=== PATIENT | female | born 1985 | race Caucasian/White ===

== ENCOUNTER 2024-05-08 21:38 | Emergency (ER) | payer SELFPAY ==
[2024-05-08 21:42] VITALS: BP 93/64
[2024-05-08 21:46] VITALS: BMI 19.3
[2024-05-08 22:06] VITALS: BP 102/72
[2024-05-08 22:14] LABS: % Basophils 0.7 % (0-2); % Eosinophils 3.6 % (0-6); % Immature Granulocytes 0.3 % (0-0.5); % Lymphocytes 19.7 % (20.5-51.1); % Monocytes 6.3 % (1.7-9.3); % Neutrophils 69.4 % (42.2-75.2); Absolute Basophils 0.1 10^3/uL (0-0.2); Absolute Eosinophils 0.4 10^3/uL (0-0.7); Absolute Lymphocytes 1.9 10^3/uL (1.2-3.4); Absolute Monocytes 0.6 10^3/uL (0.1-0.6); Absolute Neutrophils 6.8 10^3/uL (1.4-6.5); Hematocrit 35.7 % (37.0-47.0); Hemoglobin 12.9 g/dL (12.0-16.0); Mean Corp Hgb Conc. 36.1 g/dL (33.0-37.0); Nucleated Red Blood Cells % 0 %; Platelet Count 407 10^3/uL (130-400); Red Cell Dist. Width 12.5 % (11.5-14.5); White Blood Cell Count 9.8 10^3/uL (4.8-10.8)
[2024-05-08 22:36] LABS: HCG, Serum Qualitative Screen Negative
[2024-05-08 22:39] LABS: ALT (SGPT) 16 U/L (0-35); AST (SGOT) 23 U/L (14-36); Albumin 4.5 g/dl (3.5-5.0); Alkaline Phosphatase 55 U/L (38-126); Blood Urea Nitrogen 10 mg/dl (7-17); Calcium 9.6 mg/dl (8.4-10.2); Carbon Dioxide 29 mmol/L (22-30); Chloride 105 mmol/L (98-107); Estimated Creatinine Clearance 74 ml/min; Glucose 57 mg/dl (70-99); Potassium 3.8 mmol/L (3.5-5.1); Sodium 140 mmol/L (135-145); Total Bilirubin 0.3 mg/dl (0.2-1.3); Total Protein 6.8 g/dl (6.3-8.2); eGFR > 60.00
--- NOTE | 2024-05-08 22:57 | ED.GENMED ---
History of Present Illness
<Vikas Hauser MD, Resident - Last Filed: 05/09/24 02:10>
General
Chief Complaint: Rectal Bleeding
Time Seen by Provider: 05/08/24 22:30
History of Present Illness
History of Present Illness:
38-year-old female presented to the ED complaining of rectal bleeding. She reports having bloody stools for the past 5 months, describing the stools as dark and occasionally experiencing straining with bowel movement. Today, she noted that bright
red blood mixed with dark blood in her stools. Additionally, she felt dizzy. The patient also reports left upper quadrant pain and some epigastric pain which has been ongoing for the past week. She also mentions 'a polyp which protrudes after a
BM'. She is unable to urinate despite feeling an urgency but denies any pain or or burning with urination. She she has history of UTI twice in the past year. She also has experiences lower abdominal pain for the past year. The patient has a
family history of blood clots and a possible history of anxiety, insomnia and depression. She is originally from [facility].
Past History
<Vikas Hauser MD, Resident - Last Filed: 05/09/24 02:10>
Past History
ED Past Medical History: None
ED Past Surgical History: None
Social History
Tobacco: Non-smoker
Alcohol: None
Drug: None
Living: with family
Employment: Employed
Family History
Family History: Other (Noncontributory)
Review of Systems
<Vikas Hauser MD, Resident - Last Filed: 05/09/24 02:10>
Review of Systems
ABD/GI: Reports abdominal pain and bloody stools (mixed blood (dark plus bright))
Phy Exam
<Vikas Hauser MD, Resident - Last Filed: 05/09/24 02:10>
General Physical Exam
General Presentation: well appearing and no apparent distress
Cardiovascular Exam
Cardiovascular Exam: regular rate/rhythm and no murmur
Pulmonary Exam
Pulmonary Exam: lungs clear
Gastrointestinal Exam
Gastrointestinal Exam: normal bowel sounds, non tender, soft and non distended
Course
<Vikas Hauser MD, Resident - Last Filed: 05/09/24 02:10>
Orders/Labs/Results
Orders:
Orders
05/08/24 21:48
Test Result ONCE
05/08/24 22:08
C-Reactive Protein Urgent
Comment: ADDED
Complete Blood Count/With Diff Urgent
Comprehensive Metabolic Panel Urgent
Erythrocyte Sed Rate Urgent
Comment: ADDED
HCG, Serum Qualitative Screen Urgent
05/08/24 23:06
Iohexol [Omnipaque] See Protocol PO NOW STA
05/08/24 23:28
Add On- LAB Urgent
Tests Added?: esr/crp
05/09/24 00:01
CT Abd/pel W Iv And Oral Contr Urgent
Reason For Exam: rectal bleeding, LUQ pain
Abnormal Lab Results
05/08/24
22:08
Hct 35.7 L %
(37.0-47.0)
Plt Count 407 H 10^3/uL
(130-400)
Absolute Neuts (auto) 6.8 H 10^3/uL
(1.4-6.5)
Lymphocytes % 19.7 L %
(20.5-51.1)
Glucose 57 L mg/dl
(70-99)
05/08/24 22:08
05/08/24 22:08
Vital Signs
Initial and Last Documented VS:
Initial Vital Signs
Temp Pulse Resp BP Pulse Ox
98.1 F 87 18 93/64 98
05/08/24 21:42 05/08/24 21:42 05/08/24 21:42 05/08/24 21:42 05/08/24 21:42
Last Documented Vital Signs
Temp Pulse Resp BP Pulse Ox
98.6 F 74 16 118/68 99
05/09/24 00:00 05/09/24 00:00 05/09/24 00:00 05/09/24 00:00 05/09/24 00:00
<Pascual Leahy, DO - Last Filed: 05/09/24 00:19>
Orders/Labs/Results
Orders:
Orders
05/08/24 21:48
Test Result ONCE
05/08/24 22:08
C-Reactive Protein Urgent
Comment: ADDED
Complete Blood Count/With Diff Urgent
Comprehensive Metabolic Panel Urgent
Erythrocyte Sed Rate Urgent
Comment: ADDED
HCG, Serum Qualitative Screen Urgent
05/08/24 23:06
Iohexol [Omnipaque] See Protocol PO NOW STA
05/08/24 23:28
Add On- LAB Urgent
Tests Added?: esr/crp
05/09/24 00:01
CT Abd/pel W Iv And Oral Contr Urgent
Reason For Exam: rectal bleeding, LUQ pain
Abnormal Lab Results
05/08/24
22:08
Hct 35.7 L %
(37.0-47.0)
Plt Count 407 H 10^3/uL
(130-400)
Absolute Neuts (auto) 6.8 H 10^3/uL
(1.4-6.5)
Lymphocytes % 19.7 L %
(20.5-51.1)
Glucose 57 L mg/dl
(70-99)
05/08/24 22:08
05/08/24 22:08
Vital Signs
Initial and Last Documented VS:
Initial Vital Signs
Temp Pulse Resp BP Pulse Ox
98.1 F 87 18 93/64 98
05/08/24 21:42 05/08/24 21:42 05/08/24 21:42 05/08/24 21:42 05/08/24 21:42
Last Documented Vital Signs
Temp Pulse Resp BP Pulse Ox
98.6 F 74 16 118/68 99
05/09/24 00:00 05/09/24 00:00 05/09/24 00:00 05/09/24 00:00 05/09/24 00:00
<Vikas Hauser MD, Resident - Last Filed: 05/09/24 02:10>
*Critical Care Note
Total Time (30-74mins, 75-104mins- exclusive of procedures): Not Applicable
<Vikas Hauser MD, Resident - Last Filed: 05/09/24 02:10>
Update Note
Update Note:
29-year-old female presented to the ED with rectal bleeding described bright and dark red stool.
Differential diagnosis
#1 anal fissure #2 hemorrhoids #3 AVM #4 diverticulosis #5 GI bleed very less likely
Patient is hemodynamically stable. Will order Hemoccult is negative. Will order CT scan of the abdomen with IV and p.o. contrast.
CT scan results are unremarkable. Advised patient to follow-up with GI, referral given to Dr. Gab Sierra.
Advised patient return to ED with chest pain, shortness of breath, palpitations, any worsening symptoms.
ED Attending Note
<Vikas Hauser MD, Resident - Last Filed: 05/09/24 02:10>
-
Portions of this chart may have been created with voice recognition software.� Occasional wrong word or��sound alike� substitutions may have occurred due to the inherent limitations of voice recognition software.
<Pascual Leahy DO - Last Filed: 05/09/24 00:19>
ED Attending Note
Patient seen and examined by attending physician: Yes
I performed a history and physical exam of patient and discussed management with resident, I reviewed resident's note and agree with documented findings and plan of care.: Yes
ED Attending Note:
Seen with resident agree with assessment and plan
38-year-old female subacute rectal bleeding, labs are noted, will add inflammatory marker CT scan apparently patient describes it could be a prolapsed hemorrhoid, will have her follow-up with GI and colorectal surgeon if CAT scans are negative
Discharge Plan
Departure
Patient Disposition: Home (Routine Discharge)
Date of Disposition: 05/09/24
Time of Disposition: 02:05
Patient with high blood pressure during this ER visit?: No
Discharge Problem:
Painless rectal bleeding
Instructions: Bloody stools in adults
Prescriptions:
No Action
metaxalone [Skelaxin] 800 MG tablet
800 mg PO TIDPRN PRN (Reason: pain) Qty: 12 0RF
Referrals:
Gab Sierra MD [Active] - Follow up in 5-7 days
Krish Saini DO [Family Provider] - Follow up in 1 week
Interventions
Interventions:
ED- Fall Risk Assessment Last Done: 05/08/24 22:40
NT-Gjfgmg-Daazelagbq Assessment Last Done: 05/08/24 22:40
ED- Cardiac Assessment Last Done: 05/08/24 22:40
ED- Pulmonary Assessment Last Done: 05/08/24 22:40
Discharge Date and Time
Print Language: SLOVAK
[2024-05-08 23:00] VITALS: BP 104/59
[2024-05-08] MEDS: OMNIPAQUE 50 ML PO (23:15)
[2024-05-09] VITALS: BP 118/68
[2024-05-09 00:27] LABS: Erythrocyte Sed Rate 4 mm/hour (0-20)
[2024-05-09 00:50] LABS: C-Reactive Protein < 5.00 mg/L (0.0-10.00)
== END 2024-05-09 02:25 | disposition home or self-care (01) ==
LOC: EMR 21:38
PROVIDERS: Emergency Medicine; EMERGENCY PHYSICIAN Emergency Medicine; FAMILY PHYSICIAN Family Medicine Sports Medicine
DX: K62.5 Hemorrhage of anus and rectum (principal); Z87.440 Personal history of urinary (tract) infections
CPT/HCPCS: 99284; 74177; 80053; 84703; 85025; 85652; 86140; Q9967

== ENCOUNTER 2024-08-29 00:45 | Emergency (ER) | payer SELFPAY ==
[2024-08-29 00:50] VITALS: BP 110/70
--- NOTE | 2024-08-29 01:09 | ED.GENMED ---
History of Present Illness
<Niru Herrera PA-C - Last Filed: 08/29/24 01:50>
General
Chief Complaint: Problems
Source: patient
Time Seen by Provider: 08/29/24 00:55
History of Present Illness
History of Present Illness:
38yoF with a history of depression presenting for evaluation of multiple complaints. Patient is going through a divorce and is under a lot of stress. She has lost about 50 pounds over the past 5 months but has recently gained back about 5 pounds.
She started to have generalized abdominal pain and back pain about 3 days ago. The pain is intermittent and recurred about 4 hours ago. She reports feeling lightheaded due to the pain. She is also having some nausea and diarrhea. She went to [facility] yesterday for a checkup. She had a urine test which was reportedly positive. She states this is impossible because she has not had sex in 5 months. She does not remember when her last menstrual period was and she states her
cycles are irregular. She denies any vaginal bleeding. Of note, patient was seen in the ED on 05/08/24 for rectal bleeding and test was negative at that time.
Past History
<Niru Herrera PA-C - Last Filed: 08/29/24 01:50>
Past History
ED Past Medical History: None
ED Past Surgical History: None
Social History
Tobacco: Non-smoker
Alcohol: None
Drug: None
Living: with family
Employment: Employed
Family History
Family History: Other (Noncontributory)
Phy Exam
<Niru Herrera PA-C - Last Filed: 08/29/24 01:50>
General Physical Exam
General Presentation: no apparent distress
General Skin: warm and dry
General Habitus: cachetic
General Mental: alert
ENT Exam
ENT Exam: normocephalic
Cardiovascular Exam
Cardiovascular Exam: regular rate/rhythm and no murmur
Pulmonary Exam
Pulmonary Exam: lungs clear, no respiratory distress, no rales, no crackles, no rhonchi and no wheezing
Gastrointestinal Exam
Gastrointestinal Exam: soft, non distended and tender (Mild generalized tenderness throughout abdomen. Abdomen soft, non-distended. No rebound or guarding. )
Neurological Exam
Neurological Exam: alert
Manish Coma Scale
Eye Opening: Spontaneous
Verbal Response: Oriented
Motor Response: Obeys Commands
GCS Total Score: 15
Skin Exam
Skin Exam: normal color and warm/dry
Psychiatric Exam
Psychiatric Exam: normal mood/affect
<Pascual Leahy DO - Last Filed: 08/29/24 04:32>
[place] Coma Scale
GCS Total Score: 15
Course
<Niru Herrera PA-C - Last Filed: 08/29/24 01:50>
Orders/Labs/Results
Orders:
Orders
08/29/24 01:07
US W Transvaginal Urgent
Reason For Exam: Positive test, abd pain
08/29/24 01:08
Test Result ONCE
08/29/24 01:13
Beta Hcg Urine Qualitative Screen [HCG, Urine Qualitative Screen] Urgent
Date Specimen was Collected: 08/29/24
Time Specimen was Collected: 01:10
Urinalysis Reflex To Culture Urgent
Date Specimen was Collected: 08/29/24
Time Specimen was Collected: 01:10
08/29/24 01:25
Type+Screen Urgent
Beta HCG Quantitative Urgent
Is this a screen?: No
Complete Blood Count/With Diff Urgent
Comprehensive Metabolic Panel Urgent
Lipase Urgent
Magnesium Urgent
TSH Reflex To Free T4 Urgent
08/29/24 01:50
ABO2 Urgent
BBK Wristband Number:
Associate notified that ABO2 has been ordered: [id number]
Date: 08/29/24
Time: 01:42
Director [facility] ID: [id number]
Abnormal Lab Results
08/29/24
01:25
RBC 4.18 L 10^6/uL
(4.20-5.40)
Hct 33.8 L %
(37.0-47.0)
MCV 80.9 L fL
(81.0-99.0)
Creatinine 0.5 L mg/dL
(0.6-1.0)
Total Protein 6.0 L g/dl
(6.3-8.2)
08/29/24 01:25
08/29/24 01:25
Vital Signs
Initial and Last Documented VS:
Initial Vital Signs
Temp Pulse Resp BP Pulse Ox
97.8 F 77 22 110/70 100
08/29/24 00:50 08/29/24 00:50 08/29/24 00:50 08/29/24 00:50 08/29/24 00:50
Last Documented Vital Signs
Temp Pulse Resp BP Pulse Ox
97.8 F 75 14 109/73 98
08/29/24 00:50 08/29/24 02:35 08/29/24 02:35 08/29/24 02:35 08/29/24 02:35
Leilalt;Pascual Leahy, DO - Last Filed: 08/29/24 04:32>
Orders/Labs/Results
Orders:
Orders
08/29/24 01:07
US W Transvaginal Urgent
Reason For Exam: Positive test, abd pain
08/29/24 01:08
Test Result ONCE
08/29/24 01:13
Beta Hcg Urine Qualitative Screen [HCG, Urine Qualitative Screen] Urgent
Date Specimen was Collected: 08/29/24
Time Specimen was Collected: 01:10
Urinalysis Reflex To Culture Urgent
Date Specimen was Collected: 08/29/24
Time Specimen was Collected: 01:10
08/29/24 01:25
Type+Screen Urgent
Beta HCG Quantitative Urgent
Is this a screen?: No
Complete Blood Count/With Diff Urgent
Comprehensive Metabolic Panel Urgent
Lipase Urgent
Magnesium Urgent
TSH Reflex To Free T4 Urgent
08/29/24 01:50
ABO2 Urgent
BBK Wristband Number:
Associate notified that ABO2 has been ordered: [id number]
Date: 08/29/24
Time: 01:42
Director [facility] ID: [id number]
Abnormal Lab Results
08/29/24
01:25
RBC 4.18 L 10^6/uL
(4.20-5.40)
Hct 33.8 L %
(37.0-47.0)
MCV 80.9 L fL
(81.0-99.0)
Creatinine 0.5 L mg/dL
(0.6-1.0)
Total Protein 6.0 L g/dl
(6.3-8.2)
08/29/24 01:25
08/29/24 01:25
Vital Signs
Initial and Last Documented VS:
Initial Vital Signs
Temp Pulse Resp BP Pulse Ox
97.8 F 77 22 110/70 100
08/29/24 00:50 08/29/24 00:50 08/29/24 00:50 08/29/24 00:50 08/29/24 00:50
Last Documented Vital Signs
Temp Pulse Resp BP Pulse Ox
97.8 F 75 14 109/73 98
08/29/24 00:50 08/29/24 02:35 08/29/24 02:35 08/29/24 02:35 08/29/24 02:35
Information
Weeks gestation: Weeks: (7)
Location: Location: (iup)
<Niru Herrera PA-C - Last Filed: 08/29/24 01:50>
MDM/Problems Addressed
Differential Diagnosis Includes:
38yoF here after a positive test at [facility] yesterday. C/o intermittent abd and back pain over the past few days. No vaginal bleeding. She is afebrile and hemodynamically stable. She is well appearing in no acute distress. No
signs of peritonitis on abdominal exam. Differential diagnosis includes but is not limited to: abdominal pain in , ectopic , UTI, pyelonephritis
Initial ED plan: Check abdominal labs, quantitative HCG, TSH, UA, and pelvic ultrasound.
<Pascual Leahy DO - Last Filed: 08/29/24 04:32>
*Radiology
Radiology exam reviewed: other (vrad)
*Pulse Oximetry
Patient hypoxic: no
*Critical Care Note
Total Time (30-74mins, 75-104mins- exclusive of procedures): Not Applicable
ED Attending Note
<Niru Herrera PA-C - Last Filed: 08/29/24 01:50>
-
Portions of this chart may have been created with voice recognition software.� Occasional wrong word or��sound alike� substitutions may have occurred due to the inherent limitations of voice recognition software.
<Pascual Leahy DO - Last Filed: 08/29/24 04:32>
ED Attending Note
Patient seen and examined by attending physician: Yes
I performed the substantive portion of visit, reviewed & personally made and approve the management plan that is documented in note by myself or ERLINDA.: Yes
ED Attending Note:
Seen with PA agree with assessment and plan nontoxic 38-year-old female positive hCG at [facility] here she is nontoxic soft nontender abdomen, ultrasound report noted beta noted patient stable for outpatient follow-up
Discharge Plan
Departure
Prescriptions:
No Action
Anxiety Medication
1 tab PO PRN PRN (Reason: anxiety)
Patient Comments:
pt does not know what medication was prescribed
Claritin-D 24 Hour 10-240 mg Tablet Extended Release 24 Hr
1 tab PO DAILY
desvenlafaxine 100 mg Tablet Extended Release 24 Hr
100 mg PO DAILY
Referrals:
Krish Saini DO [Family Provider] -
Interventions
Interventions:
*Risk Screen - Suicide Last Done: 08/29/24 00:50
*General Assessment Last Done: 08/29/24 01:17
*Neglect/Abuse Screening Last Done: 08/29/24 00:50
ED- Fall Risk Assessment Last Done: 08/29/24 01:36
*ED COVID-19 Vaccine History Last Done: 08/29/24 01:17
ED-Female Genitourinary Assessment Last Done: 08/29/24 01:36
Discharge Date and Time
Print Language: DANISH
[2024-08-29 01:14] VITALS: BMI 17.8
[2024-08-29 01:27] LABS: HCG, Urine Qualitative Screen Positive; Urine Albumin Negative (Neg - Trace); Urine Bilirubin Negative (Negative); Urine Character Clear (Clear); Urine Color Yellow; Urine Glucose Negative (Negative); Urine Ketone Negative (Negative); Urine Leukocyte Negative (Negative); Urine Nitrite Negative (Negative); Urine Occult Blood Negative (Negative); Urine Urobilinogen Negative (Neg - 1+)
[2024-08-29 01:37] LABS: % Basophils 0.4 % (0-2); % Eosinophils 1.5 % (0-6); % Immature Granulocytes 0.2 % (0-0.5); % Lymphocytes 21.6 % (20.5-51.1); % Monocytes 5.9 % (1.7-9.3); % Neutrophils 70.4 % (42.2-75.2); Absolute Eosinophils 0.1 10^3/uL (0-0.7); Absolute Monocytes 0.6 10^3/uL (0.1-0.6); Absolute Neutrophils 6.5 10^3/uL (1.4-6.5); Hematocrit 33.8 % (37.0-47.0); Hemoglobin 12.4 g/dL (12.0-16.0); Mean Corp Hgb Conc. 36.7 g/dL (33.0-37.0); Mean Corpuscular Hgb 29.7 pg (27.0-31.0); Mean Corpuscular Volume 80.9 fL (81.0-99.0); Mean Platelet Volume 8.7 fL (7.4-10.4); Nucleated Red Blood Cells % 0 %; Platelet Count 352 10^3/uL (130-400); Red Blood Cell Count 4.18 10^6/uL (4.20-5.40); Red Cell Dist. Width 12.6 % (11.5-14.5); White Blood Cell Count 9.3 10^3/uL (4.8-10.8)
--- NOTE | 2024-08-29 01:37 | EDRN ---
Pt says she has been going through a divorce the past 5 months and is under a lot of stress, lost 50 pounds. Pt went to [facility] yesterday and had a positive test which pt says is impossible because she has not had sex in 5
months. Pt does not remember when her last period was and thinks it may have been 2-3 months ago. Pt developed generalized abd pain into her back few hours ago and says it feels like pain she gets before she gets her period. Pt has had some
nausea, no vomiting. Pt denies fever/chills/cough, cp, sob, constipation, vaginal bleeding/discharge, dizziness, weakness. G2A1P0. Pt took motrin for pain and says it has not helped.
--- NOTE | 2024-08-29 01:46 | EDRN ---
Pt had negative hcg on lab work done here 05/08/24
[2024-08-29 01:55] LABS: ALT (SGPT) 13 U/L (0-35); AST (SGOT) 18 U/L (14-36); Albumin 3.8 g/dl (3.5-5.0); Alkaline Phosphatase 39 U/L (38-126); Blood Urea Nitrogen 12 mg/dl (7-17); Calcium 9.6 mg/dl (8.4-10.2); Carbon Dioxide 23 mmol/L (22-30); Chloride 107 mmol/L (98-107); Estimated Creatinine Clearance 87 ml/min; Glucose 83 mg/dl (70-99); Lipase 91 U/L (23-300); Magnesium 1.9 mg/dl (1.6-2.3); Potassium 4.1 mmol/L (3.5-5.1); Sodium 139 mmol/L (135-145); Total Bilirubin 0.2 mg/dl (0.2-1.3); eGFR > 60.00
[2024-08-29 02:26] LABS: TSH Reflex To Free T4 2.73 uIU/ml (0.47-4.68)
[2024-08-29 02:35] VITALS: BP 109/73
[2024-08-29 04:15] VITALS: BP 108/67
== END 2024-08-29 04:40 | disposition home or self-care (01) ==
LOC: EMR 00:45
PROVIDERS: Physician Assistant; EMERGENCY PHYSICIAN Emergency Medicine; FAMILY PHYSICIAN Family Medicine Sports Medicine
DX: O26.891 Other specified pregnancy related conditions, first trimester (principal); R10.84 Generalized abdominal pain; O99.891 Other specified diseases and conditions complicating pregnancy; Z63.5 Disruption of family by separation and divorce; Z3A.01 Less than 8 weeks gestation of pregnancy
CPT/HCPCS: 99284; 76801; 76817; 80053; 81003; 81025; 83690; 83735; 84443; 84702; 85025; 86850; 86900; 86901

== ENCOUNTER 2024-10-20 20:28 | Emergency (ER) | payer SELFPAY ==
[2024-10-20 20:30] VITALS: BP 130/85
[2024-10-20 22:49] VITALS: BP 136/88
[2024-10-20 23:00] VITALS: BP 126/88
[2024-10-20 23:50] VITALS: BMI 18.0
[2024-10-21] VITALS: BP 111/78
[2024-10-21 00:38] VITALS: BP 115/78
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
== END 2024-10-21 00:46 | disposition home or self-care (01) ==
LOC: EMR 20:28
PROVIDERS: EMERGENCY PHYSICIAN Emergency Medicine; FAMILY PHYSICIAN Family Medicine Sports Medicine
DX: S09.90XA Unspecified injury of head, initial encounter (principal); R51.9 Headache, unspecified; S13.9XXA Sprain of joints and ligaments of unspecified parts of neck, initial encounter; S29.012A Strain of muscle and tendon of back wall of thorax, initial encounter; V44.5XXA Car driver injured in collision with heavy transport vehicle or bus in traffic accident, initial encounter; Y92.410 Unspecified street and highway as the place of occurrence of the external cause; F32.A Depression, unspecified
CPT/HCPCS: 99284; 70450; 72072; 72125

== ENCOUNTER 2024-11-07 09:12 | Emergency (ER) | payer SELFPAY ==
[2024-11-07 09:15] VITALS: BP 154/130
[2024-11-07 09:35] VITALS: BMI 18.5
[2024-11-07 10:25] VITALS: BP 116/84
--- NOTE | 2024-11-07 10:31 | ED.GENMED ---
History of Present Illness
General
Chief Complaint: Anxiety
Source: patient
Exam Limitations: none
Time Seen by Provider: 11/07/24 09:36
Nursing documentation reviewed up to this point in time: agreed with
History of Present Illness
History of Present Illness:
Patient is a 38-year-old female with a history of depression and anxiety and ADHD presents with what she believes is an anxiety attack. Patient says over the last several months she has had a lot of stress due to her divorce. She lives alone now.
She says during that divorce time she was not eating and lost about 30 pounds. She says she has been trying to gain her weight back by eating better. But she has been feeling overwhelmed over the last couple of days and last night was specifically
worse where she could not sleep. She used ZzzQuil tabs and took 6 tablets over the course of the night, the most recent dose was at 3 AM. Patient says she feels short of breath and some tightness in her chest as well as extreme anxiety and cannot
calm down. Patient says that she was prescribed medication for anxiety in the past, on review of PDMP it looks like she has had clonazepam and alprazolam but mostly has refills of her Adderall. Patient says she is not over using her Adderall. She
also denies any drugs or alcohol or smoking.
Patient says she has had trouble getting in with a therapist, she was seeing someone last year and was taking a medication that did not really agree with her. She cannot think of any of the names of these medications. More recently a month ago she
got a prescription for 'something' which she does not believe to be related to Ativan or Klonopin or Xanax but it did not help and she ran out.
Past History
Past History
ED Past Medical History: Psychiatric
ED Past Surgical History: None
Social History
Tobacco: Non-smoker
Alcohol: None
Drug: None
Living: alone
Employment: Employed
Family History
Family History: Other (Noncontributory)
Review of Systems
Review of Systems
Allergies reviewed?: Yes
All Other Systems: Not applicable
Phy Exam
Physical Exam
Physical Exam:
GENERAL: Alert , in no apparent distress very thin
Sunken cheeks
EYE: pupils equal and reactive
NECK: Supple
ENT: o/p clr, dry mouth
CARDIAC: Regular rate and rhythm . Not tachycardic, no murmur
LUNGS: Clear breath sounds bilaterally, no acute respiratory distress, no wheezes/rales/rhonchi
ABDOMEN: Soft, without focal tenderness, no r/g, no cvat, normal bowel sounds
NEUROLOGICAL: Alert and oriented, no focal neuro deficits
SKIN: Warm and dry, skin intact.
MUSCULOSKELETAL: No edema, well perfused. neg joe's sign
PSYCH: Mild to moderately anxious, fidgeting with her hands
Course
Orders/Labs/Results
Orders:
Orders
11/07/24 09:19
Electrocardiogram (*1) Urgent
Reason for Study: Shortness of Breath
11/07/24 09:20
EKG- Treatment ONCE
11/07/24 09:53
0.9% Sodium Chloride 1000 ml [Nss] 1,000 ml IV BOLUS
Lorazepam [Ativan] 1 mg IV NOW STA
Test Result ONCE
11/07/24 10:30
Complete Blood Count/With Diff Urgent
Comprehensive Metabolic Panel Urgent
HCG, Serum Qualitative Screen Urgent
Magnesium Urgent
11/07/24 10:40
Fentanyl, Urine Urgent
Urine Drug Abuse Screen Urgent
Date Specimen was Collected: 11/07/24
Time Specimen was Collected: 10:31
Abnormal Lab Results
11/07/24 11/07/24
10:30 10:40
WBC 12.7 H 10^3/uL
(4.8-10.8)
Abs Immat Gran (auto) 0.1 H 10^3/uL
(0-0.05)
Absolute Neuts (auto) 10.2 H 10^3/uL
(1.4-6.5)
Absolute Monos (auto) 0.7 H 10^3/uL
(0.1-0.6)
Neutrophils % 80.7 H %
(42.2-75.2)
Lymphocytes % 10.7 L %
(20.5-51.1)
Ur Amphetamines Screen Positive H
(Negative)
U Methamphetamines Scrn Positive H
(Negative)
11/07/24 10:30
11/07/24 10:30
Vital Signs
Initial and Last Documented VS:
Initial Vital Signs
Temp Pulse Resp BP Pulse Ox
36.9 C 73 18 154/130 95
11/07/24 09:15 11/07/24 09:15 11/07/24 09:15 11/07/24 09:15 11/07/24 09:15
Last Documented Vital Signs
Temp Pulse Resp BP Pulse Ox
36.9 C 94 14 102/70 99
11/07/24 09:15 11/07/24 13:57 11/07/24 13:57 11/07/24 13:57 11/07/24 13:57
MDM/Problems Addressed
Differential Diagnosis Includes:
anixety, panic, anorexia,
MDM/Problems Addressed:
38 y/o F
h/o anxiety
had some stress from divorce
wasnt eating
denies drug use
uses adderall
hussein sha d bz or anxiety before and says that she ran out and hasn't seen therapist in a while
no SI
anxious on arrival
sunken facial features
looks dry
denies drug abuse
ekg sinus tachycardia
labs with mild leukocytosis
otherwie electrolytes normal
methamphetamine positive but pt on adderall; denies use; regardless she feels better after ativan
slept for a long time
dc home
*Critical Care Note
Total Time (30-74mins, 75-104mins- exclusive of procedures): Not Applicable
ED Attending Note
-
Portions of this chart may have been created with voice recognition software.� Occasional wrong word or��sound alike� substitutions may have occurred due to the inherent limitations of voice recognition software.
Discharge Plan
Departure
Patient Disposition: Home (Routine Discharge)
Date of Disposition: 11/07/24
Time of Disposition: 13:47
Patient with high blood pressure during this ER visit?: No
Condition: Fair
Covid-19: Not Applicable
Discharge Problem:
Anxiety
Instructions: Anxiety, Adult (DC)
Prescriptions:
No Action
Anxiety Medication
1 tab PO PRN PRN (Reason: anxiety)
Patient Comments:
pt does not know what medication was prescribed
Claritin-D 24 Hour 10-240 mg Tablet Extended Release 24 Hr
1 tab PO DAILY
desvenlafaxine 100 mg Tablet Extended Release 24 Hr
100 mg PO DAILY
Referrals:
Krish Saini DO [Family Provider] - Follow up in 2-3 days
Activity Restrictions/Additional Instructions:
SEE YOUR DOCTOR FOR FURTHER TREATMENT OF YOUR ANXIETY
RETURN FO RANY CONCERNS.
Interventions
Interventions:
*Risk Screen - Suicide Last Done: 11/07/24 09:18
*General Assessment Last Done: 11/07/24 09:18
*Neglect/Abuse Screening Last Done: 11/07/24 09:18
ED- Fall Risk Assessment Last Done: 11/07/24 09:35
*ED COVID-19 Vaccine History Last Done: 11/07/24 09:35
*Nursing Disposition Last Done: 11/07/24 14:00
ED-Psychological Assessment Last Done: 11/07/24 09:35
Discharge Date and Time
Discharge Date/Time: 11/07/24 14:00
Print Language: MALAY
[2024-11-07] MEDS: NSS 1000 IV (10:33)
[2024-11-07] MEDS: ATIVAN 1 MG IV (10:34)
[2024-11-07 10:42] LABS: % Basophils 0.6 % (0-2); % Eosinophils 2.5 % (0-6); % Immature Granulocytes 0.4 % (0-0.5); % Lymphocytes 10.7 % (20.5-51.1); % Monocytes 5.1 % (1.7-9.3); % Neutrophils 80.7 % (42.2-75.2); Absolute Basophils 0.1 10^3/uL (0-0.2); Absolute Eosinophils 0.3 10^3/uL (0-0.7); Absolute Immature Granulocytes 0.1 10^3/uL (0-0.05); Absolute Lymphocytes 1.4 10^3/uL (1.2-3.4); Absolute Monocytes 0.7 10^3/uL (0.1-0.6); Absolute Neutrophils 10.2 10^3/uL (1.4-6.5); Hemoglobin 13.1 g/dL (12.0-16.0); Mean Corp Hgb Conc. 34.5 g/dL (33.0-37.0); Mean Corpuscular Hgb 29.6 pg (27.0-31.0); Mean Platelet Volume 8.7 fL (7.4-10.4); Nucleated Red Blood Cells % 0 %; Platelet Count 360 10^3/uL (130-400); Red Blood Cell Count 4.42 10^6/uL (4.20-5.40); Red Cell Dist. Width 12.6 % (11.5-14.5); White Blood Cell Count 12.7 10^3/uL (4.8-10.8)
[2024-11-07 10:51] LABS: ALT (SGPT) 23 U/L (0-35); AST (SGOT) 28 U/L (14-36); Albumin 4.3 g/dl (3.5-5.0); Alkaline Phosphatase 78 U/L (38-126); Blood Urea Nitrogen 8 mg/dl (7-17); Calcium 9.3 mg/dl (8.4-10.2); Carbon Dioxide 27 mmol/L (22-30); Chloride 105 mmol/L (98-107); Estimated Creatinine Clearance 91 ml/min; Glucose 89 mg/dl (70-99); Potassium 3.8 mmol/L (3.5-5.1); Sodium 141 mmol/L (135-145); Total Bilirubin 0.2 mg/dl (0.2-1.3); Total Protein 6.7 g/dl (6.3-8.2); eGFR > 60.00
[2024-11-07 10:59] LABS: HCG, Serum Qualitative Screen Negative
[2024-11-07 11:00] VITALS: BP 114/83
[2024-11-07 11:19] LABS: Amphetamines Positive (Negative); Barbiturates Negative (Negative); Benzodiazepines Negative (Negative); Buprenorphine Negative (Negative); Cocaine Negative (Negative); Marijuana Negative (Negative); Methadone Negative (Negative); Methamphetamines Positive (Negative); Opiates Negative (Negative); Phencyclidine Negative (Negative); Tricyclic Antidepressants Negative (Negative)
[2024-11-07 11:43] LABS: Fentanyl, Urine Negative (Negative)
[2024-11-07 12:00] VITALS: BP 111/73
[2024-11-07 13:00] VITALS: BP 99/62
[2024-11-07 13:57] VITALS: BP 102/70
== END 2024-11-07 14:00 | disposition home or self-care (01) ==
LOC: EMR 09:12
PROVIDERS: Physician Assistant; EMERGENCY PHYSICIAN Student in an Organized Health Care Education/Training Program; FAMILY PHYSICIAN Family Medicine Sports Medicine
DX: F41.9 Anxiety disorder, unspecified (principal); R06.02 Shortness of breath; R07.89 Other chest pain; R68.2 Dry mouth, unspecified; R20.0 Anesthesia of skin; Z63.5 Disruption of family by separation and divorce; Z73.3 Stress, not elsewhere classified; F32.A Depression, unspecified; F90.9 Attention-deficit hyperactivity disorder, unspecified type
CPT/HCPCS: 99284; 96374; 96361; 80053; 80306; 80307; 83735; 84703; 85025; 93005

== ENCOUNTER 2025-08-12 21:42 | Emergency (ER) | payer SELFPAY ==
[2025-08-12 21:50] VITALS: BP 105/75
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
[2025-08-13 01:16] LABS: Hematocrit 37.1 % (37.0-47.0); Hemoglobin 12.6 g/dL (12.0-16.0); Mean Corp Hgb Conc. 34.0 g/dL (33.0-37.0); Mean Corpuscular Volume 86.1 fL (81.0-99.0); Nucleated Red Blood Cells % 0 %; Platelet Count 382 10^3/uL (130-400); Red Cell Dist. Width 12.5 % (11.5-14.5)
[2025-08-13 01:38] LABS: HCG, Serum Qualitative Screen Negative
[2025-08-13 01:43] LABS: ALT (SGPT) 23 U/L (0-35); AST (SGOT) 26 U/L (14-36); Albumin 4.0 g/dl (3.5-5.0); Alkaline Phosphatase 81 U/L (38-126); Blood Urea Nitrogen 10 mg/dl (7-17); Calcium 8.8 mg/dl (8.4-10.2); Carbon Dioxide 24 mmol/L (22-30); Chloride 111 mmol/L (98-107); Glucose 100 mg/dl (70-99); Potassium 4.0 mmol/L (3.5-5.1); Sodium 141 mmol/L (135-145); Total Protein 6.6 g/dl (6.3-8.2); eGFR > 60.00
== END 2025-08-13 02:19 | disposition home or self-care (01) ==
LOC: EMR 21:42
PROVIDERS: Physician Assistant Medical; EMERGENCY PHYSICIAN Emergency Medicine; FAMILY PHYSICIAN Family Medicine
DX: G44.86 Cervicogenic headache (principal)
CPT/HCPCS: 99283; 72050; 80053; 84703; 85025